=== PATIENT | female | born 1985 | race Caucasian/White ===

== ENCOUNTER → 2018-04-20 | Outpatient (CLI) | payer OTHER ==
[2015-02-12 11:45] VITALS: BP 109/63
[~2018-04-20] MED LIST: DIPH50CA59 PO; OXYC1TAB15 PO; PREN1TAB46 PO; SERT100T PO; SERT50TA PO
[2018-04-20 15:23] LABS: BASO # 0.1 x10^3/uL (0.0-0.2); BASO % 1 % (0-3); EOS # 0.1 x10^3/uL (0.0-0.7); EOS % 2 % (0-3); HEMATOCRIT 26.7 % (36.0-47.0); HEMOGLOBIN 8.6 g/dL (12.0-15.5); LYMPH # 2.1 x10^3/uL (1.0-4.8); LYMPH % 42 % (24-48); MEAN CORPUSCULAR HEMOGLOBIN 28 pg (25-35); MEAN CORPUSCULAR HGB CONC 32 g/dL (31-37); MEAN CORPUSCULAR VOLUME 87 fL (79-100); MONO # 0.4 x10^3/uL (0.0-1.1); MONO % 8 % (0-9); NEUT # 2.3 x10^3uL (1.8-7.7); NEUT % 47 % (31-73); PLATELET COUNT 372 x10^3/uL (140-400); RED BLOOD COUNT 3.06 x10^6/uL (3.50-5.40); WHITE BLOOD COUNT 4.9 x10^3/uL (4.0-11.0)
[2018-04-20 15:36] LABS: ALBUMIN 3.8 g/dL (3.4-5.0); ALBUMIN/GLOBULIN RATIO 1.2 (1.0-1.7); CALCIUM 8.9 mg/dL (8.5-10.1); CREATININE 0.8 mg/dL (0.6-1.0); GFR 81.6; POTASSIUM 4.4 mmol/L (3.5-5.1); TOTAL BILIRUBIN 0.3 mg/dL (0.2-1.0); TOTAL PROTEIN 7.1 g/dL (6.4-8.2)
[2018-04-20 15:39] LABS: BILIRUBIN,URINE NEGATIVE (NEG); CLARITY,URINE CLEAR; COLOR,URINE YELLOW; NITRITE,URINE NEGATIVE (NEG); PH,URINE 5.5; PROTEIN,URINE NEGATIVE (NEG-TRACE); UROBILINOGEN,URINE 0.2 mg/dL (0.2 mg/dL)
[2018-04-20 15:50] LABS: BACTERIA,URINE FEW /HPF (0-FEW); RBC,URINE OCC /HPF (0-2)
[2018-04-20 15:51] LABS: SQUAMOUS EPITHELIAL CELL,UR MOD /LPF
--- NOTE | 2018-04-20 15:57 | RAD ---
AP and Lateral Views of the Chest 04/20/2018 2:38 PM Indication: Pre op cxr for Hysterectomy operation Comparison: None available Findings: There is no focal consolidation or infiltrate identified. The cardiomediastinal silhouette is within normal limits. There is no evidence of pneumothorax or pleural effusion. No acute osseous abnormalities are identified. Impression: No evidence of acute cardiopulmonary process. Electronically signed by: Gordo Nash MD (04/20/2018 3:52 PM) [facility]
--- NOTE | 2018-04-24 09:52 | NUR ---
FAXED PRE - OP TEST REPORTS TO 'S OFFICE FOR REVIEW AT 1125 04/23/2018 AND CALLED OFFICE 04/24/2018 AT 0935 AND NOTIFIED CMA. HAZEL
== END | disposition home or self-care (01) ==
LOC: SURGPAT 14:31
PROVIDERS: ATTEND Obstetrics & Gynecology
DX: Z01.818 Encounter for other preprocedural examination (principal); Z90.710 Acquired absence of both cervix and uterus
CPT/HCPCS: 36415; 71046; 80053; 81001; 85025; 87086

== ENCOUNTER 2018-04-25 05:47 | Observation (INO) | payer OTHER ==
[2018-04-25] VITALS (11 sets, daily range): BP systolic 89–112; BP diastolic 51–69
[~2018-04-25] VITALS: Ht 172.1 cm; Wt 69.5 kg
[2018-04-25] MEDS ORDERED: CLINDAMYCIN 900MG PREMIX 50 ML IV PRN (06:00)
[2018-04-25] MEDS ORDERED: DEXAMETHASONE SOD PHOS 20 MG/5 ML VIAL. ONE (06:22)
[2018-04-25] MEDS ORDERED: ONDANSETRON PF 4 MG/2 ML VIAL. ONE (06:22)
[2018-04-25] MEDS ORDERED: LIDOCAINE 2% PF Vial for OR 5 ML VIAL. ONE (06:22)
[2018-04-25] MEDS ORDERED: PROPOFOL 20 ML IV ONE (06:22)
[2018-04-25] MEDS ORDERED: ROCURONIUM 50 MG/5 ML VIAL. ONE (06:23)
[2018-04-25 06:27] LABS: U PREG PATIENT NEGATIVE (NEG)
[2018-04-25 06:39] LABS: HEMATOCRIT 26.7 % (36.0-47.0); HEMOGLOBIN 8.5 g/dL (12.0-15.5)
[2018-04-25] MEDS ORDERED: MORPHINE SULFATE 4 MG/ML VIAL. IV PRN ×2 (07:00→09:30)
[2018-04-25] MEDS ORDERED: HYDROmorphone 2 MG/ML VIAL IV PRN (07:00)
[2018-04-25] MEDS ORDERED: ONDANSETRON PF 4 MG/2 ML VIAL. IV PRN ×2 (07:00→09:30)
[2018-04-25] MEDS ORDERED: LIDOCAINE 1% PF 2 ML VIAL. ID PRN (07:00)
[2018-04-25] MEDS ORDERED: IV RINGERS,LACTATED 1000ML 1,000 ML IV SCH (07:00)
[2018-04-25] MEDS ORDERED: fentaNYL PF VIAL 100 MCG/2 ML VIAL IV PRN ×2 (07:00)
[2018-04-25] MEDS ORDERED: PROCHLORPERAZINE 10 MG/2 ML VIAL. IV PRN (07:00)
[2018-04-25] MEDS ORDERED: BUPIVAC MPF-EPI 0.5%-1:200000 30 ML VIAL. ONE (07:04)
[2018-04-25] MEDS ORDERED: METHYLENE BLUE 1% 10 ML VIAL. ONE (07:04)
[2018-04-25] MEDS ORDERED: ESTROGENS, CONJ VAGINAL CREAM 30GM TUBE. ONE (07:04)
[2018-04-25] MEDS ORDERED: fentaNYL PF VIAL 100 MCG/2 ML VIAL ONE ×2 (07:15→07:45)
[2018-04-25] MEDS ORDERED: MIDAZOLAM HCL/PF 2 MG/2 ML VIAL. ONE (07:16)
[2018-04-25] MEDS ORDERED: SEVOFLURANE 61 TO 120 MINUTES. IH ONE (07:53)
[2018-04-25] MEDS ORDERED: GLYCOPYRROLATE 1 MG/5 ML VIAL. ONE (08:04)
[2018-04-25] MEDS ORDERED: NEOSTIGMINE 10 MG/10 ML VIAL. ONE (08:19)
--- NOTE | 2018-04-25 09:29 | PDOC ---
BRIEF OPERATIVE NOTE Date: Apr 25, 2018 Pre-Op Diagnosis DUB, menorrhagia to anemia Post-Op Diagnosis same Procedure Performed LAVH/bilateral salpingectomy Surgeon Dr. Katina Jackson Group Work Program Director SAMANTHA Riggs Anesthesiologist Dr. Magana Anesthesia Type: General Blood Loss 50cc IV Fluid 1200cc Urine Output 150cc clear via bingham Specimens Obtained cervix,uterus, bilateral tubes Findings mildly enlarged uterus, mild omental adhesive disease LUQ and LLQ, normal bilateral tubes and ovaries Complications none Operative Note [id number] KATINA JACKSON MD Apr 25, 2018 09:29
[2018-04-25] MEDS ORDERED: LACTULOSE 20 GM/30 ML SOLUTION. PO PRN (09:30)
[2018-04-25] MEDS ORDERED: MAGNESIUM HYDROXIDE 2,400 MG/30 ML ORAL.SUSP. PO PRN (09:30)
[2018-04-25] MEDS ORDERED: MAG HYDROX/ALUMINUM HYD/SIMETH 30 ML ORAL.SUSP PO PRN (09:30)
[2018-04-25] MEDS ORDERED: diphenhydrAMINE 50 MG/ML VIAL IV PRN (09:30)
[2018-04-25] MEDS ORDERED: HYDROcodone/APAP 5/325MG 1 TAB TABLET PO PRN (09:30)
[2018-04-25] MEDS ORDERED: diphenhydrAMINE HCL 25 MG CAPSULE PO PRN (09:30)
[2018-04-25] MEDS ORDERED: ZOLPIDEM 5 MG TABLET. PO PRN (09:30)
[2018-04-25] MEDS ORDERED: 0.9 % SODIUM CHLORIDE 10 ML DISP.SYRIN. IV PRN (09:30)
[2018-04-25] MEDS ORDERED: CALCIUM CARBONATE 500 MG TAB.CHEW PO PRN (09:30)
[2018-04-25] MEDS ORDERED: SIMETHICONE 80 MG TAB.CHEW PO PRN (09:30)
[2018-04-25] MEDS ORDERED: NALOXONE 0.4 MG/ML VIAL. IV PRN (09:30)
--- NOTE | 2018-04-25 10:47 | OP ---
DATE OF SURGERY: 04/25/2018 PREOPERATIVE DIAGNOSES: 1. Dysfunctional uterine bleeding with menorrhagia. 2. Anemia with an initial hemoglobin of 8. POSTOPERATIVE DIAGNOSES: 1. Dysfunctional uterine bleeding with menorrhagia. 2. Anemia with an initial hemoglobin of 8. PROCEDURE: Laparoscopic-assisted vaginal hysterectomy, bilateral salpingectomy. SURGEON: Jamal Jackson M.D. COMMERCIAL CREDIT OFFICER: SAMANTHA Ritchie. ANESTHESIOLOGIST: Dr. Magana. ANESTHESIA: General. ESTIMATED BLOOD LOSS: 50 mL. URINE OUTPUT: 150 mL, clear via De Leon catheter. IV FLUIDS: 1200 mL of Crystalloid. SPECIMENS: Cervix, uterus, bilateral tubes. FINDINGS: A mildly enlarged retroverted uterus, normal bilateral tubes and ovaries. No significant pelvic adhesive disease, but she did have some mild omental left upper quadrant and left lower quadrant with the sigmoid to the left side that was out of our way, but just of note. COMPLICATIONS: None. DESCRIPTION OF PROCEDURE: This patient was taken to the operating room where general anesthesia was placed. The patient was placed in a dorsal lithotomy position in [facility]. The patient's abdomen and vagina were prepped and draped in the normal sterile fashion and a De Leon catheter had been inserted under sterile technique upon my arrival. When I arrived, a timeout was performed. Once everyone agreed and she had received her preoperative antibiotics, a bivalve speculum was placed in the patient's vagina. A single tooth tenaculum was used to grasp the anterior lip of the cervix. A 10 mL of 0.5% Marcaine with epinephrine was used to circumferentially inject around the cervix for both hemodissection and hemostatic purposes later. The Valtchev uterine manipulator was placed through the endocervical os, locked on the single tooth tenaculum and the bivalve speculum was then removed. Top gloves were discarded and changed. Attention was then turned to the abdomen where a small supraumbilical skin incision was made with the scalpel. A curved Graciela was used to dissect through the subcuticular layer to the fascia. The 5 mm Visiport was used to directly enter the abdominal cavity. Opening patient pressure was 3 mmHg. Carbon dioxide gas was used to then appropriately insufflate the abdominal cavity to maintain a pressure of 15 mmHg. The patient was placed in Trendelenburg position. Right and left lower quadrant ports were placed under direct visualization after finding an area clear on the inside, transilluminating the abdominal wall, finding an area clear of any vasculature, making a small incision and placing the 5 mm disposable atraumatic trocars under direct visualization. Once this was done, 2 mL of air were placed in these cuffs. The camera was moved to a lateral port to look at the umbilical port to make sure it was clear. Once it was assured, 2 mL of air was placed in this as well. The camera was moved back to the midline and the procedure was begun. After placing her in Trendelenburg, both tubes and ovaries were normal and she did wish to retain her ovaries as she was only 33. So elevating the tube on the right side, going under the tube above the ovary, doing a salpingectomy, crossing the right uterine ovarian pedicle, cauterizing and cutting the whole way with the LigaSure, then crossing the right round ligament, same thing cauterizing and cutting, starting the bladder flap on the right side, going down and getting the uterine vessels on the right side. This was all done exactly the same on the left, elevating the left tube and ovary, but going below the tube above the ovary, doing a salpingectomy, crossing the left uterine ovarian pedicle, again leaving the ovaries per patient request and crossing the left round ligament, going down and further meeting that bladder flap anteriorly, pushing cephalad on the uterus and lifting that bladder flap and using the monopolar tip to cut across. Once this was done, the uterine vasculature was obtained on the left side, cauterizing and cutting and hugging the cervix and uterus, going through the cardinal and broad ligaments down to the level of the uterosacral. Once this was done and it was starting to jose and free, I went back to the right side and made sure to take it through a couple more bites through the cardinal and broad ligament, even though the uterine vasculature had been obtained going down closer to the level of the uterosacral on this side as well. Once this was done, all instruments were removed from the abdomen and attention was turned vaginally. The single tooth and Valtchev were removed. A weighted speculum was placed in the patient's vagina. Thyroid Gemam clamps were placed on the anterior and posterior lips of the cervix respectively. A scalpel was used to make a circumferential incision. An open Ray-Karen 4 x 4 was used to gently push up the anterior bladder peritoneum. Cervix was elevated and the posterior cul-de-sac was sharply entered with the Castro scissors. A #0 Vicryl stitch was used to secure the posterior peritoneum to the vaginal cuff here and it was tagged with a curved Graciela clamp. The needle was cut and passed off. The short weighted speculum was removed and replaced with the long weighted vaginal Richmond speculum in the posterior cul-de-sac. Curved Rd clamps x 2 were placed on the patient's left uterosacral ligament where they were doubly clamped with curved Heaneys, cut with Castro scissors, and suture ligated x 2 with 0 Vicryl. Second one was taken through the vaginal cuff, securing uterosacral ligament to the vaginal cuff and tagging it with a straight Graciela clamp and cutting and passing the needle off. This was done exactly the same on the right side, double clamping the uterosacrals with curved Rd's, cutting with Castro scissors and suture ligating x 2 with 0 Vicryl, taking the second one through the vaginal cuff, securing uterosacral ligament to the vaginal cuff, tagging it with a straight Graciela clamp and cutting and passing the needle off. I was just a layer away on the bladder flap, but I could see it and it was translucent. So, I took the scissors and made a small incision and got the curved [place] in the anterior cul-de-sac. The 4 x 4 had previously been removed and passed back off. At this point, the right angle clamp was used to go around, not to clamp it, but just to delineate the remaining pedicle on both sides and the vaginal LigaSure was used to cauterize and cut the remaining pedicle on the left and then the right. Cervix, uterus, bilateral tubes were delivered in toto and passed off for permanent pathology. A long Allis was used to grasp the anterior bladder peritoneum. A sponge stick was used to examine all the pedicles. Once hemostasis was assured, the long weighted speculum was removed and replaced with the short weighted vaginal speculum. Everything appeared hemostatic. So 2-0 Vicryl was taken through the anterior bladder peritoneum, left uterosacral ligament, posterior peritoneum and right uterosacral ligament, thus closing the peritoneum in a pursestring like fashion. The right and left uterosacral tags were clipped. The cuff was closed in an anterior to posterior running locked fashion with a full length 2-0 Vicryl and tied to that posterior cuff tag. Sponge stick was used to examine the vaginal cuff. Once hemostasis was assured, everything was removed vaginally. All sponge, lap and needle counts were correct x 2 on the bottom part. All gloves were discarded and changed and attention was turned back above for a second look. The patient was placed back in Trendelenburg. Gas was reinsufflated and everything was hemostatic. Copious irrigation revealed hemostasis. Tisseel was placed over the cuff with excellent results. The trocars were deflated from the 2 mL of air and the right and left lower quadrant ports were taken out under direct visualization. These too were hemostatic. Gas was released from the umbilical port. It was removed. All three port sites were being closed with 4-0 nylon and injected with 0.5% Marcaine with epinephrine. The patient is currently being awakened from anesthesia. JAMAL JACKSON MD DR: VIANNEY/jackeline JOB#: [id number] / [id number]
[2018-04-25] MEDS: oxyCODONE/APAP 5/325 1 TAB TABLET PO PRN ×4 (11:24→19:25)
[2018-04-25] MEDS: SERTRALINE 50 MG TABLET. PO SCH (15:19)
[2018-04-26] MEDS: oxyCODONE/APAP 5/325 1 TAB TABLET PO PRN ×2 (01:11→06:40)
[2018-04-26 01:13] VITALS: BP 108/48
[2018-04-26 04:48] LABS: CALCIUM 8.4 mg/dL (8.5-10.1); CREATININE 0.7 mg/dL (0.6-1.0); GFR 95.2
[2018-04-26 06:43] VITALS: BP 104/57
[2018-04-26] MEDS ORDERED: IBUPROFEN 400 MG TABLET. PO PRN (09:15)
[2018-04-26] MEDS: SERTRALINE 50 MG TABLET. PO SCH (09:29)
--- NOTE | 2018-04-26 11:34 | PDOC ---
SURGICAL PROGRESS NOTE Subjective Doing well without complaints. Scant vag spotting, voiding without catheter and tolerating regular diet. wants to go home today Vital Signs Vital Signs Date Time Temp Pulse Resp B/P (MAP) Pulse Ox O2 Delivery O2 Flow Rate FiO2 04/26/18 06:43 97.8 64 18 104/57 (73) 100 Room Air 97.8 04/25/18 09:31 10 I&O Intake and Output 04/26/18 07:01 Intake Total 7090 ml Output Total 1800 ml Balance 5290 ml Intake Oral 3990 ml IV Total 3100 ml Output Urine Total 1750 ml Estimated Blood Loss 50 ml # Voids 3 PATIENT HAS A FINE: No General: Alert, Oriented X3, Cooperative, No acute distress HEENT: Atraumatic Heart: Regular rate Abdomen: Soft, No tenderness, Other (all port sites c/d/i) Extremities: No clubbing, No cyanosis, No edema, No tenderness/swelling Skin: No rashes, No breakdown Neuro: Normal speech Psych/Mental Status: Mental status NL, Mood NL Labs Laboratory Tests Test 04/25/18 06:10 04/25/18 06:15 04/25/18 10:35 04/26/18 03:55 Urine Test Negative (NEG) Hemoglobin 8.5 g/dL (12.0-15.5) 8.3 g/dL (12.0-15.5) Hematocrit 26.7 % (36.0-47.0) 22.9 % (36.0-47.0) Mean Corpuscular Hemoglobin Concent 32 g/dL (31-37) Sodium Level 140 mmol/L (136-145) Potassium Level 4.0 mmol/L (3.5-5.1) Chloride Level 106 mmol/L (98-107) Carbon Dioxide Level 28 mmol/L (21-32) Anion Gap 6 (6-14) Blood Urea Nitrogen 6 mg/dL (7-20) Creatinine 0.7 mg/dL (0.6-1.0) Estimated GFR (Cockcroft-Gault) 95.2 Glucose Level 116 mg/dL (70-99) Calcium Level 8.4 mg/dL (8.5-10.1) Laboratory Tests Test 04/26/18 03:55 Hematocrit 22.9 % (36.0-47.0) Sodium Level 140 mmol/L (136-145) Potassium Level 4.0 mmol/L (3.5-5.1) Chloride Level 106 mmol/L (98-107) Carbon Dioxide Level 28 mmol/L (21-32) Anion Gap 6 (6-14) Blood Urea Nitrogen 6 mg/dL (7-20) Creatinine 0.7 mg/dL (0.6-1.0) Estimated GFR (Cockcroft-Gault) 95.2 Glucose Level 116 mg/dL (70-99) Calcium Level 8.4 mg/dL (8.5-10.1) I have reviewed the following labs, vitals, nursing Cardiovascular: No pertinent hx Pulmonary: No pertinent hx GI: No pertinent hx Heme/Onc: Anemia NOS Psych: No pertinent hx Rheumatologic: No pertinent hx Infectious disease: No pertinent hx Renal/: No pertinent hx Endocrine: No pertinent hx Assessment/Plan POD#1 s/p LAVH/bilateral salpingectomy Routine po care d/c to home later today percocet written ok for OTC ibuprofen as well NPV x 6 weeks light/limited activity x 2 weeks NO [address] on narcotic pain meds keep appt in one week for post op call or return sooner for any other questions or concerns not limited to but including pain unrelieved with pain pills, increased or unexplained vaginal bleeding or T>100.4 JAMAL FORTE MD Apr 26, 2018 11:34
--- NOTE | 2018-04-26 11:38 | PDOC3 ---
Discharge Summary Visit Information Date of Admission: Apr 25, 2018 Date of Discharge: Apr 26, 2018 Admitting Diagnosis Comment: DUB with menorrhagia to anemia, chronic anemia to start with Final Diagnosis same Brief Hospital Course Allergies Allergies Coded Allergies Type Severity Reaction Last Updated Verified codeine Adverse Reaction Intermediate Nausea and Vomiting 04/25/18 Yes Vital Signs Vital Signs Date Time Temp Pulse Resp B/P (MAP) Pulse Ox O2 Delivery O2 Flow Rate FiO2 04/26/18 06:43 97.8 64 18 104/57 (73) 100 Room Air 97.8 04/25/18 09:31 10 Lab Results Laboratory Tests Test 04/25/18 06:10 04/25/18 06:15 04/25/18 10:35 04/26/18 03:55 Urine Test Negative (NEG) Hemoglobin 8.5 g/dL (12.0-15.5) 8.3 g/dL (12.0-15.5) Hematocrit 26.7 % (36.0-47.0) 22.9 % (36.0-47.0) Mean Corpuscular Hemoglobin Concent 32 g/dL (31-37) Sodium Level 140 mmol/L (136-145) Potassium Level 4.0 mmol/L (3.5-5.1) Chloride Level 106 mmol/L (98-107) Carbon Dioxide Level 28 mmol/L (21-32) Anion Gap 6 (6-14) Blood Urea Nitrogen 6 mg/dL (7-20) Creatinine 0.7 mg/dL (0.6-1.0) Estimated GFR (Cockcroft-Gault) 95.2 Glucose Level 116 mg/dL (70-99) Calcium Level 8.4 mg/dL (8.5-10.1) Laboratory Tests Test 04/26/18 03:55 Hematocrit 22.9 % (36.0-47.0) Sodium Level 140 mmol/L (136-145) Potassium Level 4.0 mmol/L (3.5-5.1) Chloride Level 106 mmol/L (98-107) Carbon Dioxide Level 28 mmol/L (21-32) Anion Gap 6 (6-14) Blood Urea Nitrogen 6 mg/dL (7-20) Creatinine 0.7 mg/dL (0.6-1.0) Estimated GFR (Cockcroft-Gault) 95.2 Glucose Level 116 mg/dL (70-99) Calcium Level 8.4 mg/dL (8.5-10.1) Brief Hospital Course Ms. Correa is a 33 old female who presented with DUB and chronic anemia desiring definitive therapy. She underwent LAVH with bilateral salpingectomy yesterday without complications. She has had an unremarkable postoperative course and done well. She is AF VSS and ambulating well, voiding without catheter and tolerating regular diet. She will be d/c to home today Discharge Information Condition at Discharge: Stable Follow Up: Weeks Disposition/Orders: D/C to Home Scheduled Sertraline Hcl (Zoloft) 100 Mg Tablet, 1 TAB PO DAILY for depression, #30 Ref 5 (Reported) Entered as Reported by: MARITA ARANDA on 04/20/18 1450 Last Taken: Unknown Dose on 04/24/18 Last Action: Converted on 04/25/18735 by JAMAL FORTE Scheduled PRN Diphenhydramine Hcl (Unisom) 50 Mg Capsule, 50 MG PO PRN PRN for INSOMNIA, ( Reported) Entered as Reported by: YAKOV MARTÍNEZ on 02/10/15 1557 Last Taken: Unknown Dose on 04/24/18 Last Action: HELD on 04/25/18735 by JAMAL FORTE Patient Instructions Patient Instructions POD#1 s/p LAVH/bilateral salpingectomy Routine po care d/c to home later today percocet written ok for OTC ibuprofen as well NPV x 6 weeks light/limited activity x 2 [address] on narcotic pain meds keep appt in one week for post op call or return sooner for any other questions or concerns not limited to but including pain unrelieved with pain pills, increased or unexplained vaginal bleeding or T>100.4 JAMAL FORTE MD Apr 26, 2018 11:37
[2018-04-26 11:40] VITALS: BP 109/57
--- NOTE | 2018-04-26 18:08 | PATHOLOGY ---
[facility] Accession Number: [id number] . 01 Material submitted: . CERVIX, UTERUS, BILATERAL TUBES . 01 Clinical history: . Excessive bleeding . 02 Diagnosis: Uterus and attached bilateral fallopian tubes, laparoscopic assisted vaginal hysterectomy with bilateral salpingectomy: - Severe dysplasia (VAHID-III), uterine cervix, focal. - Exocervical margin negative for VAHID. - Chronic cervicitis with focal squamous metaplasia. - Nabothian cysts, cervix. - Proliferative endometrium. - Adenomyosis, uterine corpus, subbasal, focal. - Congestion and cystic [place] rests of bilateral fallopian tubes. (JPM:jacquelyn; 04/26/2018) MBR/04/26/2018 . 02 Comment: There is a small incidental focus of severe dysplasia (VAHID-III) involving the endocervix near the squamocolumnar junction. There is no evidence of invasive carcinoma. (JPM:jacquelyn; 04/26/2018) . 02 Electronically signed: . Guanakito Chew MD, Pathologist NPI- [id number] . 01 Gross description: . The specimen is received in formalin, labeled "Brandi Correa, cervix, uterus, bilateral tubes", is a uterine corpus with attached cervix measuring 8.7 x 5.0 x 4.5 cm and weighing 97 g. The bilateral, attached fimbriated fallopian tubes measures (right = 7.5 cm in length with an average 0.4 cm diameter) and (left = 6.0 cm in length with an average 0.4 cm diameter). The anterior paracervical soft tissue is inked blue. The serosa is lopez-pink and smooth. The white-pink, glistening ectocervix measures 4.0 x 3.5 cm. The anterior ectocervix is disrupted along approximate 11:00 to 2:00 aspect and measures 1.5 x 0.8 cm. The external os is slite-like and measures 2.0 cm. Multiple nabothian cysts are present. The largest on the anterior left measuring 1.5 x 1.2 x 1.0 cm. The endocervical canal is lined by lopez-pink, corrugated mucosa and measures 2.5 cm in length. The triangular endometrial cavity measures 5.5 x 2.0 cm and is lined by lopez-pink up to 0.2 cm endometrium with no discrete polyps or masses. The lopez-pink myometrium measures up to 1.7 cm with no discrete nodules. . The bilateral fallopian tubes have a smooth, lopez-pink serosa. There are several paratubal cysts measuring up to 0.1 cm in greatest dimension. Sectioning reveals a well-defined lumen. [employer] tissue is submitted as follows: A1-A7. Cervix contiguous sections from 9:00 to 3:00 (largest nabothian cyst in A6-A7) A8. Cervix, 6:00 A9-A-10. Anterior endomyometrium A11-A12. Posterior endomyometrium A13. Right fimbriated fallopian tube A14. Left fimbriated fallopian tube ([facility]; 04/25/2018) . After initial microscopic review, the remaining cervix is entirely submitted in A15-A20 from 3:00 to 9:00 excluding 6:00 section but was previously submitted in cassette number [id number]. ([facility]; 04/26/2018) SHS/SHS . 02 Pathologist provided ICD-10: D06.9, N72, N80.0, N88.8 . 02 CPT . 141257 Specimen Comment: A courtesy copy of this report has been sent to Specimen Comment: [phone], . Specimen Comment: Report sent to / DR JACOBS Specimen Comment: A duplicate report has been generated due to demographic updates. Performed at: 01 [facility] [address] [id number] MD Jayme Lewis MD Phone: [phone] Performed at: 02 [facility] [address] [place], [place] [id number] MD Guanakito Chew MD Phone: [phone]
== END 2018-04-26 12:30 | disposition home or self-care (01) ==
LOC: SURG 05:47 → 3 NORTH 09:49
PROVIDERS: ADMIT Obstetrics & Gynecology; ATTEND Obstetrics & Gynecology
DX: N93.8 Other specified abnormal uterine and vaginal bleeding (principal); N92.0 Excessive and frequent menstruation with regular cycle; D64.9 Anemia, unspecified; N85.4 Malposition of uterus; N72 Inflammatory disease of cervix uteri; N88.8 Other specified noninflammatory disorders of cervix uteri
CPT/HCPCS: 36415; 58552; 80048; 81025; 85014; 85018; 86850; 86900; 86901; 86920; 88309; A7015; G0378; G0379; J0780; J1100; J2001; J2250; J2405; J2704; J2710; J3010; J3490; J7030; J7120; Q9968